=== PATIENT | female | born 1935 | race Caucasian/White ===

== ENCOUNTER 2019-11-17 22:23 | Emergency (ER) | payer OTHER, SELFPAY ==
[2019-11-17 22:38] VITALS: BP 190/96; PULSE 107; RESP 18; TEMP 36.7; O2SAT 98
[2019-11-17 23:50] VITALS: PULSE 87; RESP 18; TEMP 36.6; O2SAT 100
--- NOTE | 2019-11-18 00:08 | ED.SKABFB ---
HPI - Skin/Abscess/Foreign Bdy General Chief complaint: Skin/Abscess/Foreign Body Stated complaint: poision lambert Time Seen by Provider: 11/17/19 23:57 History of Present Illness HPI narrative: Itchy rash on the face and neck for the past few days. Started after working outside. She has been taking benadryl and putting a few different kinds of topical treatments on it without resolution. No wounds, pain, fever. Related Data Allergies Allergy/AdvReac Type Severity Reaction Status Date / Time No Known Allergies Allergy Verified 11/18/19 00:37 Review of Systems Review of Systems: All systems reviewed & are unremarkable except as noted in HPI and below Constitutional: Constitutional: Denies chills and Denies fever(s) Cardiovascular: Cardiovascular: Denies chest pain Respiratory: Respiratory: Denies dyspnea Gastrointestinal: Gastrointestinal: Denies nausea and Denies vomiting Integumentary/Breasts: Skin/Breast: Reports rash PMFSH Social History Social History (Updated 11/18/19 @ 04:59 by Anam Rivera MD) Gender identity (if verbalized by the patient): Female Exam Const: General: healthy appearing, no acute distress and alert Nutritional Appearance: well nourished Orientation/consciousness: patient oriented x3 HENMT: Other: Mildly erythematous papular rash to the cheeks and chin Eyes: Conjunctivae: conjunctivae normal Pupils: Equal, round and reactive pupils present EOM: EOMs intact bilaterally Resp: Effort & Inspection: normal respiratory effort Auscultation: clear to auscultation bilaterally Cardio: Rate: regular rate Rhythm: regular rhythm Skin: Other: See HEENT Neuro: General: patient oriented x3, moves all extremities, no focal motor deficits and CN's II-XI intact bilaterally Speech: normal speech Gait exam (Neuro): Normal gait present Extrem: General: normal to inspection Course Vital Signs Vital signs: Vital Signs Temperature 36.7 C 11/17/19 22:38 Pulse Rate 107 H 11/17/19 22:38 Respiratory Rate 18 11/17/19 22:38 Blood Pressure 190/96 H 11/17/19 22:38 Pulse Oximetry 98 11/17/19 22:38 Temperature 36.6 C 11/18/19 00:51 Pulse Rate 79 11/18/19 00:51 Respiratory Rate 16 11/18/19 00:51 Blood Pressure 180/94 H 11/18/19 00:51 Pulse Oximetry 100 11/18/19 00:51 Discharge Plan Discharge Clinical Impression: Contact dermatitis Qualifiers: Contact dermatitis type: allergic Contact dermatitis trigger: non-food plants Qualified Code(s): L23.7 - Allergic contact dermatitis due to plants, except food Patient Disposition: Home, Self-Care Condition: Stable Instructions: Contact Dermatitis (ED) Prescriptions: New prednisone 10 mg Tablet See Taper mg PO DAILY 15 Days Qty: 45 RF: 0 Follow-up/Referrals: PHYSICIAN NOT ON STAFF,NONSTAFF [Primary Care Provider] -
[2019-11-18] MEDS: predniSONE 20 MG TABLET 40 MG PO (00:41)
[2019-11-18 00:51] VITALS: BP 180/94; PULSE 79; RESP 16; TEMP 36.6; O2SAT 100
== END 2019-11-18 00:52 | disposition home or self-care (01) ==
PROVIDERS: Emergency Provider Emergency Medicine
DX: L23.7 Allergic contact dermatitis due to plants, except food (principal)
CPT/HCPCS: 99283; J7512

== ENCOUNTER 2022-08-29 22:10 | Emergency (ER) | payer OTHER, SELFPAY ==
[2022-08-29 22:13] VITALS: BP 156/103; PULSE 88; RESP 18; TEMP 36.3; O2SAT 100
--- NOTE | 2022-08-29 23:51 | ED.GENADULT ---
HPI - General Adult General Chief complaint: Extremity Problem,Nontraumatic Stated complaint: right domingo bump/bruise Time Seen by Provider: 08/29/22 23:39 History of Present Illness HPI narrative: This is an 87-year-old female with a history of AFib on Eliquis presenting with a lump on her domingo. Patient was out gardening throughout most the day. When she came back in she noticed a lump on her domingo. She is worried might be a blood clot. No other complaints or injuries. Related Data Allergies Allergy/AdvReac Type Severity Reaction Status Date / Time No Known Allergies Allergy Verified 08/29/22 22:46 [facility] Past Medical History Medical History (Updated 08/29/22 @ 23:54 by Blake Gillette MD) Atrial fibrillation Hypertension Social History Social History (Updated 11/18/19 @ 04:59 by Anam Rivera MD) Gender identity (if verbalized by the patient): Female Exam Narrative: APPEARANCE: No apparent distress. Head: atraumatic. EYES: EOMI, NOSE: Atraumatic NECK: Trachea midline RESPIRATORY: No increased rate of breathing CARDIOVASCULAR: RRR, ABDOMINAL: Non-distended MUSCULOSKELETAl: Patient has a small bruise with swelling over the anterior aspect of her right domingo. NEURO: Alert. Moving 4/4 extremities SKIN:: Warm, dry. Normal color PSYCHIATRIC: Normal affect Course Vital Signs Vital signs: Vital Signs Temperature 97.3 F L 08/29/22 22:13 Pulse Rate 88 08/29/22 22:13 Respiratory Rate 18 08/29/22 22:13 Blood Pressure 156/103 H 08/29/22 22:13 Pulse Oximetry 100 08/29/22 22:13 Oxygen Delivery Room Air 08/29/22 22:13 Temperature 97.3 F L 08/29/22 22:13 Pulse Rate 88 08/29/22 22:13 Respiratory Rate 18 08/29/22 22:13 Blood Pressure 156/103 H 08/29/22 22:13 Pulse Oximetry 100 08/29/22 22:13 Oxygen Delivery Room Air 08/29/22 22:13 Medical Decision Making [facility] Narrative Medical decision making narrative: -Presentation: 87-year-old female presenting with a lump on her domingo. -DDX includes but is not limited to: Bruise, hematoma -Co-morbidities complicating care: AFib on Eliquis, hypertension -Social determinants of health: retired, lives alone, likes to garden -External Chart Review: none -Hx from independent Sources: none -Independent interpretation of studies: none -Discussion of Management/Consultants: none -Dx tests considered but not ordered: none - Procedures: none -Interventions: none -Shared decision making / Disposition: patient has a small hematoma on her domingo, likely from minor trauma as she is on Xarelto. Discharged with primary care follow-up. -RX Vital Signs Vital Signs: Vital Signs Temperature 97.3 F L 08/29/22 22:13 Pulse Rate 88 08/29/22 22:13 Respiratory Rate 18 08/29/22 22:13 Blood Pressure 156/103 H 08/29/22 22:13 Pulse Oximetry 100 08/29/22 22:13 Oxygen Delivery Room Air 08/29/22 22:13 Temperature 97.3 F L 08/29/22 22:13 Pulse Rate 88 08/29/22 22:13 Respiratory Rate 18 08/29/22 22:13 Blood Pressure 156/103 H 08/29/22 22:13 Pulse Oximetry 100 08/29/22 22:13 Oxygen Delivery Room Air 08/29/22 22:13 Discharge Plan Discharge Clinical Impression: Hematoma Patient Disposition: Home, Self-Care Condition: Stable Instructions: Antibiotic Form, Hematoma (ED) Additional Instructions: Please follow-up with your primary care physician. Return if your swelling gets worse or you would like re-evaluation. Prescriptions: No Action prednisone 10 mg Tablet See Taper PO DAILY 15 Days Qty: 45 0RF Taper: Prednisone Taper from 50 mg;15 days 50 mg DAILY for 3 Days and 0 Hour 40 mg DAILY for 3 Days and 0 Hour 30 mg DAILY for 3 Days and 0 Hour 20 mg DAILY for 3 Days and 0 Hour 10 mg DAILY for 3 Days and 0 Hour Follow-up/Referrals: PHYSICIAN NOT ON STAFF,NONSTAFF [Primary Care Provider] -
== END 2022-08-29 23:59 | disposition home or self-care (01) ==
PROVIDERS: Emergency Provider Emergency Medicine
DX: S80.11XA Contusion of right lower leg, initial encounter (principal); I48.91 Unspecified atrial fibrillation; Z79.01 Long term (current) use of anticoagulants; I10 Essential (primary) hypertension; X58.XXXA Exposure to other specified factors, initial encounter
CPT/HCPCS: 99282

== ENCOUNTER 2023-10-28 08:43 | Inpatient (IN) | payer OTHER, SELFPAY ==
[2023-10-28] VITALS (25 sets, daily range): BP systolic 65–189; BP diastolic 40–98; PULSE 46–97; RESP 15–22; TEMP 36.5–36.8; O2SAT 98–100; BMI 20.6
--- NOTE | ~2023-10-28 | XR_ITS ---
EXAMINATION: XR shoulder LT min 2V, XR clavicle LT DATE: 10/28/2023 09:18 INDICATION: Left shoulder pain and deformity post fall TECHNIQUE: 1. AP internally and externally rotated and transscapular Y views of the left shoulder were obtained. 2. AP and angled AP views of the left clavicle were obtained. COMPARISON: None FINDINGS: There is an acute comminuted fracture of the left femoral head and neck. Including a few minimally di splaced fracture planes involving the greater tuberosity. There is 1.5 cm anterior and proximal displ acement of the fracture across the surgical neck consistent with a 2 part fracture. Mild acromioclavi cular osteoarthritis. There is suggestion of slight widening of the glenohumeral joint space consiste nt with the presence of a posttraumatic joint effusion. No other fractures identified. Visualized por tion of the lungs are clear. Heart size is normal. IMPRESSION: Comminuted two-part fracture the proximal left humerus. Reviewed, dictated and finalized at location B. IMPRESSION: Comminuted two-part fracture the proximal left humerus.
--- NOTE | ~2023-10-28 | CT_ITS ---
EXAMINATION: CT brain wo con DATE: 10/28/2023 12:24 INDICATION: Head injury. Fall. TECHNIQUE: Computed tomography (CT) of the head was performed without intravenous contrast. The mA wa s adjusted according to patient size. Iterative reconstruction technique was employed. The dose-lengt h product was 983.67 mGy-cm. COMPARISON: None FINDINGS: There are scattered areas of low attenuation in the cerebral white matter, which is within normal limits for the patient's age. There is no intracranial hemorrhage, acute infarction, or abnorm al intracranial mass lesion. The ventricles are normal in size. There is mild mucosal thickening in t he ethmoid sinuses. There are likely changes of ocular lens replacement surgeries. The mastoid air ce lls are normal. IMPRESSION: 1. Normal aging brain. Reviewed, dictated and finalized at location A. IMPRESSION: 1. Normal aging brain.
--- NOTE | ~2023-10-28 | CT_ITS ---
EXAMINATION: CTA chest abdomen pelvis DATE: 10/28/2023 12:27 INDICATION: Bradycardia. Fall. TECHNIQUE: Computed tomographic angiography (CTA) of the chest, abdomen, and pelvis was performed wit h 100 mL Omnipaque-350 intravenous contrast. Automated exposure control and iterative reconstruction technique were employed. The dose-length product was 968.35 mGy-cm. Maximum intensity projection 3D-r econstructions of the aorta and other arteries were constructed by the technologist on a separate wor kstation. COMPARISON: None. FINDINGS: CHEST CTA: There is mild emphysema. The lungs demonstrate mild scarring and atelectasis. There are trace pleural effusions. There is left atrial enlargement of the heart. There are coronary artery calcifications. No pericardial effusion. Calcified left hilar lymph nodes are consistent with old granulomatous disea se. Aortic atherosclerosis is noted. No aneurysm or dissection. There is severe thoracic spondylosis. There is a comminuted fracture of proximal left humerus. ABDOMEN AND PELVIS CTA: There are cysts in the liver measuring up to 8 mm. The gallbladder, spleen, pancreas, and adrenal gla nds are normal. There is cortical thinning of the kidneys. There is a 6 mm cyst in left kidney. The b ladder is distended. There is a 2.6 cm cyst in left ovary, likely benign. There are no dilated loops of bowel. The appendix is normal. There are no pathologically enlarged lymph nodes. There is no free intraperitoneal fluid. There is calcified atherosclerosis of the aorta and many of the other arteries . 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 There ar e 2 right renal arteries with moderate to severe stenosis. There is moderate stenosis of left renal a rtery. There is no significant stenosis of inferior mesenteric artery. There is severe lumbar spondyl osis. IMPRESSION: 1. Aortic atherosclerosis. No aneurysm or dissection. 2. Comminuted fracture of proximal left humerus. Reviewed, dictated and finalized at location A.
[2023-10-28] MEDS: MORPHINE SULFATE (*CRX) 2 MG/ML INJ IV PUSH (09:48)
--- NOTE | 2023-10-28 09:59 | ED.FALL ---
HPI - Fall General Chief Complaint: Fall Stated Complaint: fall, shoulder deformity Time Seen by Provider: 10/28/23 09:00 Source: patient Mode of arrival: EMS Limitations: no limitations History of Present Illness HPI Narrative: Patient is an 88-year-old female who presents to the ER after falling out on her back deck. She reports she tripped over her cat and hit her shoulder on the railing. Patient denies pain at rest but endorses pain with any type of movement. She denies any chest pain, shortness of breath, or one-sided weakness/tingling. Related Data Allergies Allergy/AdvReac Type Severity Reaction Status Date / Time No Known Allergies Allergy Verified 10/28/23 09:47 Review of Systems Review of Systems: All systems reviewed & are unremarkable except as noted in HPI and below PMFSH Past Medical History Medical History Atrial fibrillation Hypertension Social History Social History Gender identity (if verbalized by the patient): Female Exam Narrative: GENERAL: Well appearing, well-nourished, non-toxic, in no acute distress at baseline. NECK: Supple. No adenopathy, no masses. RESPIRATORY: Airway patent, respirations nonlabored. Clear to auscultation bilaterally, no rales, rhonchi, wheezing. CARDIOVASCULAR: Regular rate and rhythm without murmurs, rubs, or gallops. Peripheral pulses 2+ and equal bilaterally. ABDOMINAL: Soft, nontender, nondistended, no hepatosplenomegaly. Normoactive BS. MUSCULOSKELETAL: Moves all extremities. Pt is unable to tolerate any manipulation of her L shoulder and winces with abduction, adduction, internal and external rotation. L shoulder is extremely swollen and bruised. NEURO: A&O X3. Speech clear. Cranial nerves II-XII grossly intact. No ataxic movements. PSYCHIATRIC: Appropriate mood and affect. Normal interaction. Course Consultations Consultation #1: Orthopedics Date: 10/28/23 Time: 10:00 Vital Signs Vital signs: Vital Signs Pulse Rate 71 10/28/23 08:50 Respiratory Rate 18 10/28/23 08:50 Blood Pressure 187/88 H 10/28/23 08:50 Pulse Oximetry 100 10/28/23 08:50 Oxygen Delivery Room Air 10/28/23 08:50 Pulse Rate 71 10/28/23 09:46 Respiratory Rate 18 10/28/23 09:46 Blood Pressure 189/95 H 10/28/23 09:46 Pulse Oximetry 100 10/28/23 09:46 Oxygen Delivery Room Air 10/28/23 08:50 MDM - Fall MDM Narrative Medical decision making narrative: Patient is an 88-year-old female who presents to the ER after falling out on her back deck. She reports she tripped over her cat and hit her shoulder on the railing. Patient denies pain at rest but endorses pain with any type of movement. She denies any chest pain, shortness of breath, or one-sided weakness/tingling. Pt's x-rays shouler an acute comminuted fracture of the left humeral head and neck. Including a few minimally displaced fracture planes involving the greater tuberosity. There is 1.5 cm anterior and proximal displacement of the fracture across the surgical neck consistent with a 2 part fracture. Mild acromioclavicular osteoarthritis. There is suggestion of slight widening of the glenohumeral joint space consistent with the presence of a posttraumatic joint effusion. No other fractures identified. Visualized portion of the lungs are clear. Heart size is normal. Orthopedics consulted and they advised pt be placed in a sling and follow-up as an outpatient. Differential Diagnosis Differential diagnosis: Likely syncope, dislocation of shoulder region and compression fracture Imaging Data Attestation: I personally reviewed and interpreted this imaging study as follows: Radiologist's impression: Impressions Clavicle X-Ray 10/28/23 09:20 IMPRESSION: Comminuted two-part fracture the proximal left humerus. Shoulder X-Ray 10/28/23 09:20 IMPRESS
[2023-10-28] MEDS: SODIUM CHLORIDE 0.9% IV 1,000 ML 999 ML (10:45)
--- NOTE | 2023-10-28 10:45 | PC.NURSE ---
UPON DISCHARGING PT AND PLACING SHOULDER IMMOBILIZER SHE BECAME DIAPHORETIC AND DIZZY WITH NAUSEA. PLACED BACK INTO BED NOTED TO BE BRADYCARDIC AND HYPOTENSIVE. DR CASTRO TO BEDSIDE TO [facility].
--- NOTE | 2023-10-28 10:50 | ECG_ITS ---
Test Date: 2023-10-28 10:50:54 Measurements Intervals [place] Rate: 49 P: 0 KS: 0 QRS: 18 QRSD: 83 T: 30 QT: 479 QTc: 435 Interpretive Statements ATRIAL FIBRILLATION WITH SLOW VENTRICULAR RESPONSE BORDERLINE R WAVE PROGRESSION, ANTERIOR LEADS NONSPECIFIC ST-T WAVE ABNORMALITY0 ANT/INF LEADS BASELINE ARTIFACT- I, II, V4-V6 ABNORMAL ECG No previous ECG available for comparison Electronically Signed On 10-28-2023 11:23:59 CDT by Bon Saleem D.O.
--- NOTE | 2023-10-28 10:53 | ED.FALL ---
HPI - Fall General Chief Complaint: Fall <Pearl Krause APRN - Last Filed: 10/28/23 11:00> Stated Complaint: fall, shoulder deformity <Pearl Krause APRN - Last Filed: 10/28/23 11:00> Time Seen by Provider: 10/28/23 09:00 <Pearl Krause APRN - Last Filed: 10/28/23 11:00> Source: patient <Pearl Krause APRN - Last Filed: 10/28/23 11:00> Mode of arrival: EMS <Pearl Krause APRN - Last Filed: 10/28/23 11:00> History of Present Illness HPI Narrative: Patient is an 88-year-old female who was ready to be discharged home from the ER when she went bradycardic and her blood pressure dropped into the 70s over 40s. <Pearl Krause APRN - Last Filed: 10/28/23 11:00> Related Data Home Medications: Home Medications Medication Instructions Recorded Confirmed amlodipine 2.5 mg tablet 2.5 mg PO DAILY 10/28/23 10/28/23 metoprolol succinate 25 mg 25 mg PO DAILY 10/28/23 10/28/23 tablet,extended release 24 hr rivaroxaban 20 mg tablet (Xarelto) 20 mg PO DAILY 10/28/23 10/28/23 <Pearl Krause APRN - Last Filed: 10/28/23 11:00> Allergies/Adverse Reactions: Allergies Allergy/AdvReac Type Severity Reaction Status Date / Time No Known Allergies Allergy Verified 10/28/23 09:47 <Pearl Krause APRN - Last Filed: 10/28/23 11:00> Review of Systems Review of Systems: All systems reviewed & are unremarkable except as noted in HPI and below <Pearl Krause APRN - Last Filed: 10/28/23 11:00> PMFSH Past Medical History Medical History: Medical History Atrial fibrillation Hypertension <Pearl Krause APRN - Last Filed: 10/28/23 11:00> Family History Family History: Family History Father Unknown family medical history Mother Unknown family medical history <Pearl Krause APRN - Last Filed: 10/28/23 11:00> Social History Social History: Social History Smoking status: Never smoker Alcohol intake: current Drinks per week: 1 Substance use: never Do You Feel Safe in your Home?: Yes Lack of Transportation: YES Lack of Food: Never True Current Housing: I Have Housing Concerned About Future Housing: No Difficulty Paying Gas/Electric Bills: No Difficulty Paying for Meds: No Currently Unemployed: No Education: Bachelor's Degree Difficulty w/ Childcare or Family Care: No Gender identity (if verbalized by the patient): Female Spiritual care concerns: No <Pearl Krause APRN - Last Filed: 10/28/23 11:00> Course [employer] TECHNICIAN/PA Physician Supervision I was called to patient's bedside approximately 10:40 a.m. after she had a near syncopal event with associated bradycardia and hypotension. Patient at that time was being placed into a sling, went mostly unresponsive, was found to have a heart rate in the low 30s that was irregular, hypotension at 70 to 80s. A 2nd IV was placed, fluid bolus was given, placed on cardiac pads an EKG was obtained. Patient was becoming much more awake and arousable very quickly thereafter and her heart rate and blood pressure both improved without any significant intervention except for fluids. EKG was interpreted by myself as atrial fibrillation with slow ventricular response. She has a history of atrial fibrillation as reported to me. Patient was verbalizing stated that she had no acute pain but was feeling slightly lightheaded. This was resolving with time without any interventions like cardioactive medications such as atropine or cardiac pacing. Within 5 minutes patient had returned to a normal blood pressure heart rate. Likely patient had a vasovagal response to the pain from her fracture in the left upper extremity. Troponins and CTA is were ordered. Remainder of dictation by MLP. Plan to admit
[2023-10-28 10:55] LABS: Glucose Point of Care 136 mg/dl (65-105)
[2023-10-28 11:39] LABS: Basophils Percent Auto 0.1 % (0.2-1.2); Hematocrit 38.9 % (37.0-47.0); Hemoglobin 12.5 g/dL (12.0-15.0); Immature Granulocyte Absolute 0.03 K/mm3 (0.00-0.031); Immature Granulocyte Percent A 0.3 % (0-0.5); Lymphocytes Absolute Auto 0.68 K/mm3 (0.9-3.2); Lymphocytes Percent Auto 7.1 % (18.3-44.2); Mean Corpuscular HGB Conc 32.1 g/dl (32-36); Mean Corpuscular Hemoglobin 30.9 pg (26-34); Mean Corpuscular Volume 96.3 fl (80-100); Mean Platelet Volume 12.1 fl (7.4-10.4); Monocytes Absolute Auto 0.7 K/mm3 (0.1-0.6); Monocytes Percent Auto 6.8 % (2.6-8.5); Neutrophils Absolute Auto 8.3 K/mm3 (1.3-6.7); Neutrophils Percent Auto 85.7 % (45.5-73.1); Platelet Count Result 126 k/mm3 (150-375); Red Blood Count 4.04 M/mm3 (4.2-5.4); Red Cell Distribution Width 14.7 % (11.5-14.5); White Blood Count 9.6 K/mm3 (4.5-10.0)
[2023-10-28 11:58] LABS: Alanine Aminotransferase 19 U/L (6-35); Albumin Level 3.8 g/dL (3.5-5.1); Alkaline Phosphatase 62 U/L (38-126); Anion Gap 8 mmol/L (4-12); Aspartate Amino Transferase 28 U/L (14-36); Bilirubin,Total 0.6 mg/dL (0.2-1.3); Blood Urea Nitrogen 12 mg/dL (7-17); Calcium 8.3 mg/dL (8.4-10.2); Carbon Dioxide 24 mmol/L (22-30); Chloride 107 mmol/L (98-107); Estimated CRCL calculation 52 ml/min; Estimated Glomerular Filt Rate > 60; Glucose 128 mg/dL (65-110); Potassium 3.9 mmol/L (3.4-5.0); Sodium 139 mmol/L (137-145)
[2023-10-28 12:09] LABS: Troponin I < 0.012 ng/mL (0.000-0.034)
--- NOTE | 2023-10-28 13:43 | ADMGEN ---
This patient, Kristie Coates, was admitted to IMU Room 204-01. Patient/family oriented to hospital policies and general routines including ID bracelet, bed and alarms, visiting hours, pain management, procedures, bathroom and other care routines, personal items, smoking policy, room service/diet, and visiting hours. Information on how to activate the Rapid Response Team has been discussed. Patient/Family are encouraged to report perceived risks to care and to ask questions if they do not understand what they are told or what they should do.
--- NOTE | 2023-10-28 14:44 | PM.IMHP ---
H&P: HPI History of Present Illness Date/Time: 10/28/23 14:44 Chief Complaint: Fall, Near-Syncope Narrative: 88 y/o F presents here with fall and near syncope with PMH of atrial fibrillation and HTN. The patient initially presented here from home via EMS for further evaluation of fall. HPI obtained through chart review and patient report. She reports this morning at around 6:00 a.m. she was feeding her cats when one went under foot. This caused her to lose her balance and fall was from standing. She reports she fell onto her left hip/left shoulder and did not hit her head or lose consciousness. Reporting significant pain to her left shoulder with obvious deformity, edema, and ecchymosis visible bone arrival. Initial imaging showed a comminuted two part fracture of the proximal left humerus. Ortho was consulted, sling applied and instructed to follow up outpatient. Patient was not discharged, however prior to her leaving she had a near syncopal event. At around 10:40 a.m. while sling was being applied she became largely unresponsive with accompanying bradycardia and hypotension. Telemetry showed HR in the low 30s and BP was 70-80/palp. Patient became more responsive and vital signs normalized, started on IV fluids. EKG after event showed atrial fibrillation with slow ventricular response. Patient has history of atrial fibrillation on Metoprolol and Xarelto. Post event she reported lightheadedness prior to event. Denies nausea, vomiting, diaphoresis, palpitations, dizziness, or chest pain prior to event nor after event. Patient also reported that she had not eaten today (currently eating lunch) which may have also contributed to event. Patient does not follow with a home service advisor. Initial VS at presentation: HR 71, RR 18, 187/88, and 100% on RA. ED workup showed: No leukocytosis, no anemia, glucose 128, creatinine 0.7 and GFR >60, initial troponin negative. Clavicle/shoulder XR showed a comminuted 2 part fracture of the proximal left humerus. Head CT showed a normal aging brain. CTA of the chest/abdomen/pelvis showed aortic atherosclerosis, no aneurysm or dissection, and a comminuted fracture of the proximal left humerus. Review of Systems Review of Systems: All systems reviewed & are unremarkable except as noted in HPI and below [facility] Past Medical History Medical History Atrial fibrillation Hypertension Family History Family History Father Unknown family medical history Mother Unknown family medical history Social History Social History Smoking status: Never smoker Alcohol intake: current Drinks per week: 1 Substance use: never Do You Feel Safe in your Home?: Yes Lack of Transportation: YES Lack of Food: Never True Current Housing: I Have Housing Concerned About Future Housing: No Difficulty Paying Gas/Electric Bills: No Difficulty Paying for Meds: No Currently Unemployed: No Education: Bachelor's Degree Difficulty w/ Childcare or Family Care: No Gender identity (if verbalized by the patient): Female Spiritual care concerns: No Meds Home Medications and Allergies Home Medications Medication Instructions Recorded Confirmed Type amlodipine 2.5 mg tablet 2.5 mg PO DAILY 10/28/23 10/28/23 History metoprolol succinate 25 mg 25 mg PO DAILY 10/28/23 10/28/23 History tablet,extended release 24 hr rivaroxaban 20 mg tablet (Xarelto) 20 mg PO DAILY 10/28/23 10/28/23 History Allergies Allergy/AdvReac Type Severity Reaction Status Date / Time No Known Allergies Allergy Verified 10/28/23 09:47 Vital Signs Vital Signs - 24 hr 10/28/23 08:50 10/28/23 09:46 10/28/23 10:00 Pulse Rate 71 71 59 L Respiratory Rate 18 18 18 Blood Pressure 187/88 H 189/95 H 165/85 H Pulse Oximetry 100 100 98 Oxygen Deliv
[2023-10-28 15:22] LABS: NT Pro B Type Natriuretic Pept 1630 pg/mL (19.9-100)
[2023-10-28] MEDS: ACETAMINOPHEN 325 MG TABLET 650 MG PO (15:24)
[2023-10-28 15:27] LABS: Troponin I < 0.012 ng/mL (0.000-0.034)
[2023-10-28 18:30] LABS: Troponin I < 0.012 ng/mL (0.000-0.034)
[2023-10-28] MEDS: HYDROcodone/acetaminophen (*CRX) 5-325 MG TABLET 1 TAB PO (20:58)
[2023-10-29] VITALS (16 sets, daily range): BP systolic 143–176; BP diastolic 58–97; PULSE 64–93; RESP 14–20; TEMP 36.3–37.3; O2SAT 93–100
--- NOTE | 2023-10-29 | ECHO_ITS ---
Patient Info Name: Kristie Coates Age: 88 years : 1935 Gender: Female Ht: 68 in Wt: 136 lbs BSA: 1.72 m2 HR: 82 bpm BP: 162 / 97 mmHg Heart Rhythm: Indeterminant Technical Quality: Good Exam Date: 10/29/2023 11:08 AM Exam Location: Echo Lab Patient Status: Outpatient Admit Date: 10/28/2023 Staff Ordering Physician: Anca Sanchez APRN Warehouse Consultant: Kerri Soler RDCS Attending Provider: Kelvin Sutherland MD Referring Physician: Laura CAO; Exam Type: CA echo doppler color flow Study Info Indications - near-syncope Complete two-dimensional, color flow and Doppler transthoracic echocardiogram is performed. Summary 1. Complete two-dimensional, color flow and Doppler transthoracic echocardiogram is performed. 2. Left ventricular chamber dimension is normal. 3. Left ventricular systolic function is normal, estimated at 60-65%. 4. The left ventricular diastolic function is normal. 5. E/e' 9 is minimally elevated. 6. Left atrial chamber dimension is moderately enlarged. 7. Right atrial chamber dimension is moderately enlarged. 8. There is moderate aortic valve sclerosis. 9. There is mild to moderate aortic valve stenosis with a peak velocity of 184 cm/s, mean gradient of 9 mmHg, and aortic valve area of 1.5 cm2. 10. There is trace aortic valve regurgitation. 11. The mitral valve has mildly calcified annulus. 12. There is mild mitral valve regurgitation. 13. There is mild tricuspid valve regurgitation. 14. No pulmonary hypertension, estimated pulmonary arterial systolic pressure is 37 mmHg. Left Ventricle E/e' 9 is minimally elevated. Left ventricular chamber dimension is normal. Left ventricular systolic function is normal, estimated at 60-65%. The left ventricular diastolic function is normal. Right Ventricle Right ventricular systolic function is normal and with normal TAPSE 2.1 cm. Right ventricular chamber dimension is normal. Left Atria Left atrial chamber dimension is moderately enlarged. Right Atria Right atrial chamber dimension is moderately enlarged. Aortic Valve The aortic valve is probable trileaflet. There is moderate aortic valve sclerosis. There is mild to moderate aortic valve stenosis with a peak velocity of 184 cm/s, mean gradient of 9 mmHg, and aortic valve area of 1.5 cm2. There is trace aortic valve regurgitation. Pulmonic Valve There is no pulmonic regurgitation. Mitral Valve The mitral valve has mildly calcified annulus. There is no mitral valve stenosis. There is mild mitral valve regurgitation. Tricuspid Valve There is mild tricuspid valve regurgitation. No pulmonary hypertension, estimated pulmonary arterial systolic pressure is 37 mmHg. Pericardium/Pleural There is no pericardial effusion. Inferior Vena Cava Normal inferior vena cava with >50% collapse upon inspiration consistent with normal right atrial pressure, 5 mmHg. Aorta The aortic root size at the sinus of Valsalva is normal. Left Ventricular Outflow Tract Name Value Normal LVOT 2D LVOT Diameter 1.8 cm LVOT Doppler LVOT Peak Gradient 3 mmHg LVOT Mean Gradient 2 mmHg LVOT VTI 23 cm
[2023-10-29] MEDS: HYDROcodone/acetaminophen (*CRX) 5-325 MG TABLET 1 TAB PO ×3 (03:23→19:34)
[2023-10-29 05:05] LABS: Basophils Percent Auto 0.3 % (0.2-1.2); Eosinophils Percent Auto 0.4 % (0-4.4); Hematocrit 35.9 % (37.0-47.0); Hemoglobin 11.5 g/dL (12.0-15.0); Immature Granulocyte Absolute 0.02 K/mm3 (0.00-0.031); Immature Granulocyte Percent A 0.3 % (0-0.5); Lymphocytes Absolute Auto 1.76 K/mm3 (0.9-3.2); Lymphocytes Percent Auto 24.9 % (18.3-44.2); Mean Corpuscular Hemoglobin 30.4 pg (26-34); Mean Platelet Volume 12.5 fl (7.4-10.4); Monocytes Percent Auto 13.5 % (2.6-8.5); Neutrophils Absolute Auto 4.3 K/mm3 (1.3-6.7); Neutrophils Percent Auto 60.6 % (45.5-73.1); Platelet Count Result 146 k/mm3 (150-375); Red Blood Count 3.78 M/mm3 (4.2-5.4); Red Cell Distribution Width 14.7 % (11.5-14.5); White Blood Count 7.1 K/mm3 (4.5-10.0)
[2023-10-29 05:18] LABS: Anion Gap 6 mmol/L (4-12); Blood Urea Nitrogen 17 mg/dL (7-17); Calcium 8.5 mg/dL (8.4-10.2); Carbon Dioxide 27 mmol/L (22-30); Chloride 102 mmol/L (98-107); Estimated CRCL calculation 50 ml/min; Estimated Glomerular Filt Rate > 60; Glucose 109 mg/dL (65-110); Potassium 3.4 mmol/L (3.4-5.0); Sodium 135 mmol/L (137-145)
--- NOTE | 2023-10-29 09:09 | PM.CNOR ---
Assessment and Plan Assessment and plan (1) Fracture of humerus, proximal, left, closed: Qualifiers: Encounter type: initial encounter Fracture morphology: other fracture Fracture alignment: nondisplaced Qualified Code(s): S42.295A - Other nondisplaced fracture of upper end of left humerus, initial encounter for closed fracture Code(s): S42.202A - Unspecified fracture of upper end of left humerus, initial encounter for closed fracture Status: Acute Assessment and Plan: Radiographs in the ED reveal a comminuted two-part fracture the proximal left humerus. The fracture type and injury as well as radiographs discussed with the patient. No family present and unable to get ahold of family at this time. Operative and nonoperative treatment options reviewed. Recommended nonoperative treatment at this time. Risk of nonunion, malunion or late displacement discussed. Stiffness, pain and possible dysfunction of the joint discussed. Fracture precautions and activity restrictions reviewed. Would like to further discuss with family/brother. Current information in the chart is incorrect- phone disconnected. Nursing notified. Patient may need rehab placement vs. [facility] pending ability to get around independently with shoulder fracture/shoulder immobilizer. PT/OT. NWB LUE. Pain control. Ice. Care coordination consult requested. Will plan for repeat radiographs in the outpatient orthopedic clinic in 5-6 weeks. Gentle pendulum exercises, okay to remove shoulder immobilizer for hygiene purposes. Monitor skin. Nystatin powder in the underarm space if needed. (2) Altered mental status: Code(s): R41.82 - Altered mental status, unspecified Status: Acute Assessment and Plan: Attempted to contact patient's brother who is her person to notify to discuss her typical baseline mentation. Phone number in the chart is incorrect. No other contacts listed. Requested RN attempt to obtain new information to discuss plan of care with the family. (3) Near syncope: Code(s): R55 - Syncope and collapse Status: Acute Plan Reviewed history, exam, radiographs and current labs with attending MD and covering surgeon, Dr. Pond, who agrees with current plan as indicated above. No further recommendations from Dr. Pond at this time. History of Present Illness HPI Consult date: 10/29/23 Chief complaint: L Humeral Fx/Syncopal episode w poss Cardiac Invol Narrative: 88 year old female presented to the ED yesterday from home s/p fall on her back deck. She reports she tripped over her cat and hit her shoulder on the railing. At the time in the ED, patient denied any other pain/symptoms. Radiographs of the left shoulder reveal comminuted two-part fracture the proximal left humerus. Dr. Pond was director utilization management and consulted from the ED. Recommended patient be put in a shoulder immobilizer and be evaluated as an outpatient. Upon d/c and placement of the shoulder immobilizer, patient had a syncopal event requiring a rapid response and further work up. Per the medical record, her vitals quickly returned to baseline. She was admitted for observation in the IMU. Orthopedic consult requested while patient is inpatient. Upon exam today, patient is confused. She states she has been in the hospital for 5 days. Poor historian today in regards to nature of injury. No family at bedside presently. Review of Systems Review of Systems: All systems reviewed & are unremarkable except as noted in HPI and below ROS unobtainable: Yes unobtainable due to mental status (confusion today ) [facility] Past Medical History Medical History Atrial fibrillation Hypertension Family History Family History Father Unknown family medical history Mother Unknown family medical history Social History Social History (Reviewed 10/29/23 @ 10
[2023-10-29] MEDS: METOPROLOL SUCCINATE EXT REL 25 MG TABCR PO (09:59)
[2023-10-29] MEDS: amLODIPine BESYLATE 2.5 MG TABLET PO (09:59)
[2023-10-29] MEDS: RIVAROXABAN 20 MG TABLET PO (09:59)
[2023-10-29] MEDS: ONDANSETRON INJ 4 MG/2 ML VIAL IV PUSH (10:48)
--- NOTE | 2023-10-29 13:07 | PM.CNCAR ---
Assessment and Plan Assessment and plan (1) Atrial fibrillation: Qualifiers: Atrial fibrillation type: unspecified Qualified Code(s): I48.91 - Unspecified atrial fibrillation Code(s): I48.91 - Unspecified atrial fibrillation Status: Chronic Assessment and Plan: Chronic atrial fibrillation managed with metoprolol and Xarelto. On telemetry review she generally has heart rate within the normal range but did have some transient bradycardia in the emergency department associated with hypotension. As she has not had any further significant bradycardia or hypotension I suspect this may have been a vasovagal/pain response. For now I am not recommending any additional cardiac workup. An echo has been ordered by the hospitalist and will be reviewed. Continue to monitor on telemetry for now. (2) Near syncope: Code(s): R55 - Syncope and collapse Status: Acute Assessment and Plan: As above, likely vasovagal (3) Hypertension: Qualifiers: Hypertension type: primary hypertension Qualified Code(s): I10 - Essential (primary) hypertension Code(s): I10 - Essential (primary) hypertension Status: Chronic Assessment and Plan: Will advance her amlodipine to 5mg daily History of Present Illness History of Present Illness Consult date/time: 10/29/23 13:07 Requesting physician: Kelvin Sutherland MD Consult reason: atrial fibrillation Reason For Visit: L Humeral Fx/Syncopal episode w poss Cardiac Invol Narrative: Kristie Coates is an 88 year old female with atrial fibrillation. She is hospitalized after having a mechanical fall at home. Cardiology is consulted because of an episode in the ER of dizziness, hypotension, and diaphoresis. Patient does recall feeling dizzy at some point during her stay in the ED but does not recall this event specifically. She reports still feeling light headed. Review of her vital sign documentation shows a BP of 65/40 mmHg which improved with IV fluids. Telemetry generally shows heart rate in the normal range in atrial fibrillation but in the ED she did have some bradycardia with rates in the high 30's - 40's. She has a history of syncope but reports it has been many years. She denies loss of consciousness at the time of her fall. She denies palpitations, shortness of breath, chest pain. She has had the diagnosis of atrial fibrillation for many years and this is managed by her primary doctor, she does not follow with a mechanical specialist. Review of Systems Review of Systems: All systems reviewed & are unremarkable except as noted in HPI and below PMFSH Past Medical History Medical History Atrial fibrillation Hypertension Family History Family History Father Unknown family medical history Mother Unknown family medical history Social History Social History Smoking status: Never smoker Alcohol intake: current Drinks per week: 1 Substance use: never Do You Feel Safe in your Home?: Yes Lack of Transportation: YES Lack of Food: Never True Current Housing: I Have Housing Concerned About Future Housing: No Difficulty Paying Gas/Electric Bills: No Difficulty Paying for Meds: No Currently Unemployed: No Education: Bachelor's Degree Difficulty w/ Childcare or Family Care: No Gender identity (if verbalized by the patient): Female Spiritual care concerns: No Meds Home Medications and Allergies Home Medications Medication Instructions Recorded Confirmed Type amlodipine 2.5 mg tablet 2.5 mg PO DAILY 10/28/23 10/28/23 History metoprolol succinate 25 mg 25 mg PO DAILY 10/28/23 10/28/23 History tablet,extended release 24 hr rivaroxaban 20 mg tablet (Xarelto) 20 mg PO DAILY 10/28/23 10/28/23 History Allergies Allergy/AdvReac Typ
--- NOTE | 2023-10-29 18:22 | PM.IMPN ---
Progress Note: A&P Assessment and Plan (1) Fracture of humerus, proximal, left, closed: Qualifiers: Encounter type: initial encounter Fracture morphology: other fracture Fracture alignment: nondisplaced Qualified Code(s): S42.295A - Other nondisplaced fracture of upper end of left humerus, initial encounter for closed fracture Code(s): S42.202A - Unspecified fracture of upper end of left humerus, initial encounter for closed fracture Status: Acute Assessment and Plan: - trauma workup: Clavicle XR, head CT, and chest/abdomen/pelvis CTA negative for acute findings. Shoulder XR showed a comminuted 2 part fracture of the proximal left humerus. - fall precautions - shoulder immobilizer applied - analgesics p.r.n. Outpatient follow up with ortho (2) Near syncope: Code(s): R55 - Syncope and collapse Status: Acute Assessment and Plan: - EKG, initial: AFib with slow ventricular response, rate 49, borderline R-wave progression anterior leads, nonspecific ST-T-wave abnormality anterior/inferior leads, baseline artifact. No previous EKG available for comparison - CTA chest/abdomen/pelvis: 1. Aortic atherosclerosis. No aneurysm or dissection. 2. Comminuted fracture of proximal left humerus. - Troponin: <0.012, 3 and 6 hour ordered - add TSH and BNP - suspected to be vasovagal/multifactorial related to pain during sling application, lack of breakfast, and pain medication. - telemetry monitoring - orthostatic vital signs and ECHO pending cardiology eval noted (3) Atrial fibrillation: Qualifiers: Atrial fibrillation type: unspecified Qualified Code(s): I48.91 - Unspecified atrial fibrillation Code(s): I48.91 - Unspecified atrial fibrillation Status: Chronic Assessment and Plan: - home medications: continue metoprolol and Xarelto - telemetry monitoring (4) Hypertension: Qualifiers: Hypertension type: primary hypertension Qualified Code(s): I10 - Essential (primary) hypertension Code(s): I10 - Essential (primary) hypertension Status: Chronic Assessment and Plan: - chronic, currently 186/81 - home medications: continue Amlodipine - monitor Plan Diet: Heart healthy GI Prophylaxis: Not currently indicated DVT Prophylaxis: SCDs Lines: Peripheral Code Status: Full code Subjective Date/time seen: 10/29/23 18:22 Interval history: patient comfortable at bedside, however she is unable to recall events of her fall, only stated she remembered being dizzy Review of Systems Review of Systems: All systems reviewed & are unremarkable except as noted in HPI and below Exam Narrative: General: alert and comfortable Eyes: EOMI, PERRLA ENNT External ears normal, Neck is supple, no masses, Respiratory systems: Clear to auscultation Cardiovascular S1, S2, normal rhythm, no murmur, rub, or gallop; no thrill or palpable murmurs on palpation. Gastrointestinal: soft, non-tender, and non-distended abdomen with no masses; BS present Skin: no rash, lesions, ulcerations, subcutaneous nodules or induration Musculoskeletal: eccymosis of the left shoulder Neurologic: Alert and oriented x3, non focal Mental Status Exam: normal affect Objective Data Vital Signs Vital Signs: Vital Signs - 24 hr 10/28/23 20:20 10/28/23 20:00 10/28/23 20:00 Temperature 97.7 F Pulse Rate 93 97 97 Respiratory Rate 16 16 Blood Pressure 149/72 H Pulse Oximetry 100 100 Oxygen Delivery Room Air 10/28/23 22:00 10/28/23 23:00 10/28/23 23:00 Temperature Pulse Rate 88 78 78 Respiratory Rate 16 Blood Pressure Pulse Oximetry 100 Oxygen Delivery Room Air 10/29/23 01:06 10/29/23 02:00 10/29/23 03:29 Temperature 97.7 F Pulse Rate 74 76 78 Respiratory Rate 16 Blood Pressure 146/58 H Pulse Oximetry 93 Oxygen Delivery 10/29/23 03:29 10/29/23 03:31 10/29/23 05:38
[2023-10-29] MEDS: PROCHLORPERAZINE EDISYLATE 10 MG/2 ML VIAL IV PUSH (19:34)
[2023-10-30] VITALS (18 sets, daily range): BP systolic 140–156; BP diastolic 70–96; PULSE 77–90; RESP 16–20; TEMP 36.4–36.8; O2SAT 97–99
[2023-10-30 04:31] LABS: Basophils Percent Auto 0.2 % (0.2-1.2); Eosinophils Percent Auto 0.1 % (0-4.4); Hematocrit 34.8 % (37.0-47.0); Hemoglobin 11.5 g/dL (12.0-15.0); Immature Granulocyte Absolute 0.02 K/mm3 (0.00-0.031); Immature Granulocyte Percent A 0.2 % (0-0.5); Lymphocytes Absolute Auto 0.93 K/mm3 (0.9-3.2); Lymphocytes Percent Auto 10.4 % (18.3-44.2); Mean Corpuscular Volume 93.8 fl (80-100); Mean Platelet Volume 12.4 fl (7.4-10.4); Monocytes Absolute Auto 1.1 K/mm3 (0.1-0.6); Monocytes Percent Auto 11.7 % (2.6-8.5); Neutrophils Absolute Auto 6.9 K/mm3 (1.3-6.7); Neutrophils Percent Auto 77.4 % (45.5-73.1); Platelet Count Result 138 k/mm3 (150-375); Red Blood Count 3.71 M/mm3 (4.2-5.4); Red Cell Distribution Width 14.4 % (11.5-14.5)
[2023-10-30 04:51] LABS: Alanine Aminotransferase 17 U/L (6-35); Albumin Level 3.6 g/dL (3.5-5.1); Alkaline Phosphatase 55 U/L (38-126); Anion Gap 8 mmol/L (4-12); Aspartate Amino Transferase 29 U/L (14-36); Bilirubin,Total 0.8 mg/dL (0.2-1.3); Blood Urea Nitrogen 14 mg/dL (7-17); Calcium 8.3 mg/dL (8.4-10.2); Carbon Dioxide 27 mmol/L (22-30); Chloride 96 mmol/L (98-107); Estimated CRCL calculation 50 ml/min; Estimated Glomerular Filt Rate > 60; Glucose 116 mg/dL (65-110); Potassium 3.2 mmol/L (3.4-5.0); Sodium 131 mmol/L (137-145)
[2023-10-30] MEDS: PROCHLORPERAZINE EDISYLATE 10 MG/2 ML VIAL IV PUSH (06:22)
--- NOTE | 2023-10-30 08:23 | PM.PNCARD ---
Progress Note: A&P Assessment and Plan (1) Atrial fibrillation: Qualifiers: Atrial fibrillation type: unspecified Qualified Code(s): I48.91 - Unspecified atrial fibrillation Code(s): I48.91 - Unspecified atrial fibrillation Status: Chronic Plan 88-year-old lady with chronic asymptomatic atrial fibrillation with good heart rate control. This has nothing to do with a mechanical fall, tripping over her cat that is the reason for her hospitalization. At this point cardiology will sign off is this does not appear to be primarily a cardiac event. Her PCP has been following her atrial fib prior to this admission and since that is a chronic issue it would seem that follow-up in our office is probably of no great benefit. Please call me if you have cardiovascular questions while she is still in the hospital otherwise I will sign off at this time Henry Colvin MD [facility] Subjective Date/time seen: date of service:10/30/23 08:23 Interval history: Follow-up visit in this 88-year-old lady with: Chronic atrial fibrillation being managed with low dose of metoprolol for rate control. She was admitted to the hospital with a mechanical fall, tripping over her cat and sustaining a fracture of her humerus. Non operative management of this has been recommended by orthopedic consult. Telemetry demonstrates AFib with normal ventricular response. Exam Const: General: comfortable and no acute distress Other: Elderly white female eating her breakfast no cardiovascular complaints HENMT: Mouth: Yes moist mucous membranes Eyes: Sclera: sclerae normal Neck: Neck: supple and no JVD Resp: Effort & Inspection: normal respiratory effort Auscultation: clear to auscultation bilaterally Cardio: Rate: regular rate Rhythm: abnormal rhythm irregularly irregular GI: GI Palp: Yes Soft to palpation Auscultation: normal bowel sounds Skin: General skin exam: normal color Neuro: Other: alert and oriented x3 Extrem: Other: good perfusion, no edema Objective Data Vital Signs Vital Signs: Vital Signs - 24 hr 10/29/23 09:59 10/29/23 12:08 10/29/23 12:00 Temperature 36.3 C L Pulse Rate 84 83 Respiratory Rate 20 Blood Pressure 176/83 H Pulse Oximetry 100 Oxygen Delivery Room Air 10/29/23 10:00 10/29/23 12:00 10/29/23 12:00 Temperature Pulse Rate 76 86 Respiratory Rate Blood Pressure Pulse Oximetry Oxygen Delivery Room Air 10/29/23 14:00 10/29/23 16:00 10/29/23 16:00 Temperature 36.3 C L Pulse Rate 83 72 64 Respiratory Rate 18 Blood Pressure 146/75 H Pulse Oximetry 100 Oxygen Delivery 10/29/23 18:00 10/29/23 16:00 10/29/23 19:30 Temperature 36.9 C Pulse Rate 82 72 Respiratory Rate 18 Blood Pressure 145/90 H Pulse Oximetry 100 Oxygen Delivery Room Air 10/29/23 20:00 10/29/23 20:00 10/29/23 22:00 Temperature Pulse Rate 78 85 Respiratory Rate Blood Pressure Pulse Oximetry 100 Oxygen Delivery Room Air 10/29/23 23:49 10/30/23 00:00 10/30/23 00:00 Temperature 37.3 C Pulse Rate 78 82 Respiratory Rate 14 Blood Pressure 143/83 H Pulse Oximetry 99 99 Oxygen Delivery 10/30/23 02:00 10/30/23 04:00 10/30/23 04:00 Temperature Pulse Rate 81 89 Respiratory Rate Blood Pressure Pulse Oximetry 98 Oxygen Delivery Room Air 10/30/23 04:00 10/30/23 06:00 Temperature 36.7 C Pulse Rate 88 77 Respiratory Rate 18 Blood Pressure 140/70 Pulse Oximetry 98 Oxygen Delivery Intake/Output Intake/Output: Intake & Output 10/27/23 10/28/23 10/29/23 10/30/23 23:59 23:59 23:59 23:59 Intake Total 1240 1210 550 Output Total 750 950 Balance 490 260 550 Meds/Results Medications: Active Medications Generic Name Dose Route Start Last Admin Trade Name Ariella PRN Reason Stop Dose Admin Acetaminophen 650 mg 10/28/23 13:29 10/28/23 15:24 Acet
[2023-10-30] MEDS: RIVAROXABAN 20 MG TABLET PO (08:46)
[2023-10-30] MEDS: amLODIPine BESYLATE 5 MG TABLET PO (08:46)
[2023-10-30] MEDS: METOPROLOL SUCCINATE EXT REL 25 MG TABCR PO (08:46)
--- NOTE | 2023-10-30 12:56 | PM.IMPN ---
Progress Note: A&P Assessment and Plan (1) Fracture of humerus, proximal, left, closed: Qualifiers: Encounter type: initial encounter Fracture morphology: other fracture Fracture alignment: nondisplaced Qualified Code(s): S42.295A - Other nondisplaced fracture of upper end of left humerus, initial encounter for closed fracture Code(s): S42.202A - Unspecified fracture of upper end of left humerus, initial encounter for closed fracture Status: Acute Assessment and Plan: - trauma workup: Clavicle XR, head CT, and chest/abdomen/pelvis CTA negative for acute findings. Shoulder XR showed a comminuted 2 part fracture of the proximal left humerus. - fall precautions - shoulder immobilizer applied - analgesics p.r.n. Outpatient follow up with ortho (2) Near syncope: Code(s): R55 - Syncope and collapse Status: Acute Assessment and Plan: - EKG, initial: AFib with slow ventricular response, rate 49, borderline R-wave progression anterior leads, nonspecific ST-T-wave abnormality anterior/inferior leads, baseline artifact. No previous EKG available for comparison - CTA chest/abdomen/pelvis: 1. Aortic atherosclerosis. No aneurysm or dissection. 2. Comminuted fracture of proximal left humerus. - Troponin: <0.012, 3 and 6 hour ordered - TSH wnl - patient is orthostatic started on Fludrocortisone ECHO showed normal LV function cardiology evaluated deemed patient has vasovagal continue above car and monitor (3) Atrial fibrillation: Qualifiers: Atrial fibrillation type: unspecified Qualified Code(s): I48.91 - Unspecified atrial fibrillation Code(s): I48.91 - Unspecified atrial fibrillation Status: Chronic Assessment and Plan: - home medications: continue metoprolol and Xarelto - telemetry monitoring (4) Hypertension: Qualifiers: Hypertension type: primary hypertension Qualified Code(s): I10 - Essential (primary) hypertension Code(s): I10 - Essential (primary) hypertension Status: Chronic Assessment and Plan: - chronic, currently 140/80 - home medications: continue Amlodipine - monitor Plan Diet: Heart healthy DVT Prophylaxis: On Xarelto Code Status: Full code Subjective Date/time seen: 10/30/23 12:56 Interval history: patient orthostatic this morning started on Fludrocortisone monitor Review of Systems Review of Systems: All systems reviewed & are unremarkable except as noted in HPI and below Exam Narrative: General: alert and comfortable Eyes: EOMI, PERRLA ENNT External ears normal, Neck is supple, no masses, Respiratory systems: Clear to auscultation Cardiovascular S1, S2, normal rhythm, no murmur, rub, or gallop; no thrill or palpable murmurs on palpation. Gastrointestinal: soft, non-tender, and non-distended abdomen with no masses; BS present Skin: no rash, lesions, ulcerations, subcutaneous nodules or induration Musculoskeletal: eccymosis of the left shoulder Neurologic: Alert and oriented x3, non focal Mental Status Exam: normal affect Const: General: comfortable and no acute distress Other: , female, nontoxic appearance HENMT: Face/Nose/Sinus: Normal nares present Mouth: Yes moist mucous membranes Eyes: General: appearance normal, both eyes and all related structures Sclera: sclerae normal Pupils: Equal, round and reactive pupils present EOM: EOMs intact bilaterally Resp: Effort & Inspection: normal respiratory effort Auscultation: clear to auscultation bilaterally Cardio: Rate: regular rate Rhythm: abnormal rhythm Other: no murmur or rub. GI: Other: Abdomen soft, nondistended, nontender. Skin: General skin exam: normal color and no rashes or lesions noted Other: Ecchymosis to left shoulder. Neuro: Cranial nerves: Yes Equal, round and reactive pupils present Speech: normal speech Motor exam (puneet
[2023-10-30] MEDS: FLUDROCORTISONE ACETATE 0.1 MG TABLET PO (14:34)
[2023-10-30] MEDS: HYDROcodone/acetaminophen (*CRX) 5-325 MG TABLET 1 TAB PO (23:40)
[2023-10-31] VITALS (21 sets, daily range): BP systolic 129–185; BP diastolic 70–92; PULSE 71–107; RESP 16–18; TEMP 36.2–36.8; O2SAT 95–98
[2023-10-31 04:36] LABS: Basophils Percent Auto 0.1 % (0.2-1.2); Eosinophils Percent Auto 0.2 % (0-4.4); Hematocrit 33.1 % (37.0-47.0); Immature Granulocyte Absolute 0.05 K/mm3 (0.00-0.031); Immature Granulocyte Percent A 0.6 % (0-0.5); Lymphocytes Absolute Auto 1.07 K/mm3 (0.9-3.2); Lymphocytes Percent Auto 13.3 % (18.3-44.2); Mean Corpuscular HGB Conc 33.2 g/dl (32-36); Mean Corpuscular Hemoglobin 30.7 pg (26-34); Mean Corpuscular Volume 92.5 fl (80-100); Mean Platelet Volume 12.4 fl (7.4-10.4); Monocytes Absolute Auto 1.1 K/mm3 (0.1-0.6); Monocytes Percent Auto 14.1 % (2.6-8.5); Neutrophils Absolute Auto 5.8 K/mm3 (1.3-6.7); Neutrophils Percent Auto 71.7 % (45.5-73.1); Platelet Count Result 138 k/mm3 (150-375); Red Blood Count 3.58 M/mm3 (4.2-5.4); Red Cell Distribution Width 13.9 % (11.5-14.5); White Blood Count 8.1 K/mm3 (4.5-10.0)
[2023-10-31 04:54] LABS: Alanine Aminotransferase 18 U/L (6-35); Albumin Level 3.4 g/dL (3.5-5.1); Alkaline Phosphatase 50 U/L (38-126); Anion Gap 4 mmol/L (4-12); Aspartate Amino Transferase 28 U/L (14-36); Bilirubin,Total 0.8 mg/dL (0.2-1.3); Blood Urea Nitrogen 13 mg/dL (7-17); Carbon Dioxide 30 mmol/L (22-30); Chloride 92 mmol/L (98-107); Estimated CRCL calculation 58 ml/min; Estimated Glomerular Filt Rate > 60; Glucose 102 mg/dL (65-110); Potassium 3.1 mmol/L (3.4-5.0); Sodium 126 mmol/L (137-145)
[2023-10-31] MEDS: METOPROLOL SUCCINATE EXT REL 25 MG TABCR PO (08:14)
[2023-10-31] MEDS: RIVAROXABAN 20 MG TABLET PO (08:14)
[2023-10-31] MEDS: FLUDROCORTISONE ACETATE 0.1 MG TABLET PO (08:14)
[2023-10-31] MEDS: amLODIPine BESYLATE 5 MG TABLET PO (08:15)
[2023-10-31] MEDS: SODIUM CHLORIDE 0.9% IV 500 ML IV CONT (11:15)
[2023-10-31 13:50] LABS: Sodium 126 mmol/L (137-145)
--- NOTE | 2023-10-31 16:42 | PM.IMPN ---
Progress Note: A&P Assessment and Plan (1) Fracture of humerus, proximal, left, closed: Qualifiers: Encounter type: initial encounter Fracture morphology: other fracture Fracture alignment: nondisplaced Qualified Code(s): S42.295A - Other nondisplaced fracture of upper end of left humerus, initial encounter for closed fracture Code(s): S42.202A - Unspecified fracture of upper end of left humerus, initial encounter for closed fracture Status: Acute Assessment and Plan: - trauma workup: Clavicle XR, head CT, and chest/abdomen/pelvis CTA negative for acute findings. Shoulder XR showed a comminuted 2 part fracture of the proximal left humerus. - fall precautions - shoulder immobilizer applied - analgesics p.r.n. Outpatient follow up with ortho (2) Near syncope: Code(s): R55 - Syncope and collapse Status: Acute Assessment and Plan: - EKG, initial: AFib with slow ventricular response, rate 49, borderline R-wave progression anterior leads, nonspecific ST-T-wave abnormality anterior/inferior leads, baseline artifact. No previous EKG available for comparison - CTA chest/abdomen/pelvis: 1. Aortic atherosclerosis. No aneurysm or dissection. 2. Comminuted fracture of proximal left humerus. - Troponin: <0.012, 3 and 6 hour ordered - TSH wnl - orthostatic viral signs normal with Fludrocortisone ECHO showed normal LV function cardiology evaluated deemed patient has vasovagal continue above car and monitor (3) Atrial fibrillation: Qualifiers: Atrial fibrillation type: unspecified Qualified Code(s): I48.91 - Unspecified atrial fibrillation Code(s): I48.91 - Unspecified atrial fibrillation Status: Chronic Assessment and Plan: - home medications: continue metoprolol and Xarelto - telemetry monitoring (4) Hypertension: Qualifiers: Hypertension type: primary hypertension Qualified Code(s): I10 - Essential (primary) hypertension Code(s): I10 - Essential (primary) hypertension Status: Chronic Assessment and Plan: - chronic, currently 140/80 - home medications: continue Amlodipine - monitor (5) Hyponatremia: Code(s): E87.1 - Hypo-osmolality and hyponatremia Status: Acute Assessment and Plan: Na 126 today started on Sodium tablets monitor Plan Diet: Heart healthy DVT Prophylaxis: On Xarelto Code Status: Full code Subjective Date/time seen: 10/31/23 16:42 Interval history: Orthostatic vital signs normal this morning Review of Systems Review of Systems: All systems reviewed & are unremarkable except as noted in HPI and below Exam Narrative: General: alert and comfortable Eyes: EOMI, PERRLA ENNT External ears normal, Neck is supple, no masses, Respiratory systems: Clear to auscultation Cardiovascular S1, S2, normal rhythm, no murmur, rub, or gallop; no thrill or palpable murmurs on palpation. Gastrointestinal: soft, non-tender, and non-distended abdomen with no masses; BS present Skin: no rash, lesions, ulcerations, subcutaneous nodules or induration Musculoskeletal: eccymosis of the left shoulder Neurologic: Alert and oriented x3, non focal Mental Status Exam: normal affect Const: General: comfortable and no acute distress Other: , female, nontoxic appearance HENMT: Face/Nose/Sinus: Normal nares present Mouth: Yes moist mucous membranes Eyes: General: appearance normal, both eyes and all related structures Sclera: sclerae normal Pupils: Equal, round and reactive pupils present EOM: EOMs intact bilaterally Resp: Effort & Inspection: normal respiratory effort Auscultation: clear to auscultation bilaterally Cardio: Rate: regular rate Rhythm: abnormal rhythm Other: no murmur or rub. GI: Other: Abdomen soft, nondistended, nontender. Skin: General skin exam: normal color and no rashes or lesions noted
[2023-10-31] MEDS: PROCHLORPERAZINE EDISYLATE 10 MG/2 ML VIAL IV PUSH (16:50)
[2023-10-31] MEDS: SODIUM CHLORIDE 1 GM TABLET PO (16:50)
--- NOTE | 2023-10-31 20:40 | ADMGEN ---
This patient, Kristie Coates, was transferred to Medical Room 245-01 from .
--- NOTE | 2023-10-31 20:51 | PC.NURSE ---
This patient, Kristie Coates, was transferred to [ 245] on 10/31/23 at 2042. Personal belongings sent with patient. Report given to [ May RN]. Appropriate documentation sent with patient.
[2023-11-01] VITALS (11 sets, daily range): BP systolic 117–152; BP diastolic 59–68; PULSE 78–117; RESP 14–18; TEMP 36.3–36.8; O2SAT 96–98
[2023-11-01 06:35] LABS: Basophils Percent Auto 0.2 % (0.2-1.2); Eosinophils Percent Auto 0.1 % (0-4.4); Hematocrit 33.4 % (37.0-47.0); Hemoglobin 10.9 g/dL (12.0-15.0); Immature Granulocyte Absolute 0.02 K/mm3 (0.00-0.031); Immature Granulocyte Percent A 0.2 % (0-0.5); Immature Platelet Fraction Pct 12.5 % (0.9-11.2); Lymphocytes Absolute Auto 1.25 K/mm3 (0.9-3.2); Mean Corpuscular HGB Conc 32.6 g/dl (32-36); Mean Corpuscular Hemoglobin 30.4 pg (26-34); Monocytes Absolute Auto 1.3 K/mm3 (0.1-0.6); Neutrophils Absolute Auto 5.7 K/mm3 (1.3-6.7); Neutrophils Percent Auto 68.5 % (45.5-73.1); Platelet Count Result 152 k/mm3 (150-375); Red Blood Count 3.59 M/mm3 (4.2-5.4); Red Cell Distribution Width 14.4 % (11.5-14.5); White Blood Count 8.3 K/mm3 (4.5-10.0)
[2023-11-01 06:46] LABS: Alanine Aminotransferase 22 U/L (6-35); Albumin Level 3.6 g/dL (3.5-5.1); Alkaline Phosphatase 58 U/L (38-126); Anion Gap 5 mmol/L (4-12); Aspartate Amino Transferase 35 U/L (14-36); Bilirubin,Total 0.9 mg/dL (0.2-1.3); Blood Urea Nitrogen 16 mg/dL (7-17); Calcium 8.4 mg/dL (8.4-10.2); Carbon Dioxide 30 mmol/L (22-30); Chloride 97 mmol/L (98-107); Estimated CRCL calculation 50 ml/min; Estimated Glomerular Filt Rate > 60; Glucose 100 mg/dL (65-110); Magnesium 2.4 mg/dL (1.6-2.3); Potassium 3.5 mmol/L (3.4-5.0); Sodium 132 mmol/L (137-145)
[2023-11-01] MEDS: METOPROLOL SUCCINATE EXT REL 25 MG TABCR PO (09:02)
[2023-11-01] MEDS: SODIUM CHLORIDE 1 GM TABLET PO ×2 (09:03→17:13)
[2023-11-01] MEDS: FLUDROCORTISONE ACETATE 0.1 MG TABLET PO (09:03)
[2023-11-01] MEDS: amLODIPine BESYLATE 5 MG TABLET PO (09:03)
[2023-11-01] MEDS: RIVAROXABAN 20 MG TABLET PO (09:03)
--- NOTE | 2023-11-01 10:14 | PM.IMPN ---
Progress Note: A&P Assessment and Plan (1) Fracture of humerus, proximal, left, closed: Qualifiers: Encounter type: initial encounter Fracture morphology: other fracture Fracture alignment: nondisplaced Qualified Code(s): S42.295A - Other nondisplaced fracture of upper end of left humerus, initial encounter for closed fracture Code(s): S42.202A - Unspecified fracture of upper end of left humerus, initial encounter for closed fracture Status: Acute Assessment and Plan: - trauma workup: Clavicle XR, head CT, and chest/abdomen/pelvis CTA negative for acute findings. Shoulder XR showed a comminuted 2 part fracture of the proximal left humerus. - fall precautions - shoulder immobilizer applied - analgesics p.r.n. Outpatient follow up with ortho (2) Near syncope: Code(s): R55 - Syncope and collapse Status: Acute Assessment and Plan: - EKG, initial: AFib with slow ventricular response, rate 49, borderline R-wave progression anterior leads, nonspecific ST-T-wave abnormality anterior/inferior leads, baseline artifact. No previous EKG available for comparison - CTA chest/abdomen/pelvis: 1. Aortic atherosclerosis. No aneurysm or dissection. 2. Comminuted fracture of proximal left humerus. - Troponin: <0.012, 3 and 6 hour ordered - TSH wnl - orthostatic viral signs normal with Fludrocortisone ECHO showed normal LV function cardiology evaluated deemed patient has vasovagal continue above car and monitor (3) Atrial fibrillation: Qualifiers: Atrial fibrillation type: unspecified Qualified Code(s): I48.91 - Unspecified atrial fibrillation Code(s): I48.91 - Unspecified atrial fibrillation Status: Chronic Assessment and Plan: - home medications: continue metoprolol and Xarelto - telemetry monitoring (4) Hypertension: Qualifiers: Hypertension type: primary hypertension Qualified Code(s): I10 - Essential (primary) hypertension Code(s): I10 - Essential (primary) hypertension Status: Chronic Assessment and Plan: - chronic, currently 140/80 - home medications: continue Amlodipine - monitor (5) Hyponatremia: Code(s): E87.1 - Hypo-osmolality and hyponatremia Status: Acute Assessment and Plan: Na 132 today started on Sodium tablets, will discontinue on discharge since patient is on Fludrocortisone monitor (6) Orthostatic hypotension: Code(s): I95.1 - Orthostatic hypotension Status: Acute Assessment and Plan: orthostatic vital signs resolved on FLudrocortisone will discharge on 10 days worth and have PCP follow up and adjust accordingly Plan Diet: Heart healthy DVT Prophylaxis: On Xarelto Code Status: Full code Patient awaiting SNF placement Subjective Date/time seen: 11/01/23 10:14 Interval history: Orthostatic vital signs normal this morning, on Fludrocortisone Patient awaiting SNF placement WIll f/u with Ortho for humeral fracture outpatient Review of Systems Review of Systems: All systems reviewed & are unremarkable except as noted in HPI and below Exam Narrative: General: alert and comfortable Eyes: EOMI, PERRLA ENNT External ears normal, Neck is supple, no masses, Respiratory systems: Clear to auscultation Cardiovascular S1, S2, normal rhythm, no murmur, rub, or gallop; no thrill or palpable murmurs on palpation. Gastrointestinal: soft, non-tender, and non-distended abdomen with no masses; BS present Skin: no rash, lesions, ulcerations, subcutaneous nodules or induration Musculoskeletal: eccymosis of the left shoulder Neurologic: Alert and oriented x3, non focal Mental Status Exam: normal affect Const: General: comfortable and no acute distress Other: , female, nontoxic appearance HENMT: Face/Nose/Sinus: Normal nares present Mouth: Yes moist mucous membranes Eyes: General: appearance nor
--- NOTE | 2023-11-01 12:43 | PM.PNORT ---
Progress Note: A&P Assessment and Plan (1) Fracture of humerus, proximal, left, closed: Qualifiers: Encounter type: initial encounter Fracture morphology: other fracture Fracture alignment: nondisplaced Qualified Code(s): S42.295A - Other nondisplaced fracture of upper end of left humerus, initial encounter for closed fracture Code(s): S42.202A - Unspecified fracture of upper end of left humerus, initial encounter for closed fracture Status: Acute Assessment and Plan: Radiographs in the ED reveal a comminuted two-part fracture the proximal left humerus. The fracture type and injury as well as radiographs discussed with the patient and family. Operative and nonoperative treatment options reviewed. Recommended nonoperative treatment at this time. Risk of nonunion, malunion or late displacement discussed. Stiffness, pain and possible dysfunction of the joint discussed. Fracture precautions and activity restrictions reviewed. Discussed fracture with the brother at the bedside today as well. PT/OT. NWB LUE. Pain control. Ice. Shoulder immobilizer. Gentle pendulum exercises, okay to remove shoulder immobilizer for hygiene purposes. Monitor skin. Nystatin powder in the underarm space if needed. Dispo: SNF vs. [facility] Repeat radiographs in the outpatient orthopedic clinic in 5-6 weeks. (2) Altered mental status: Code(s): R41.82 - Altered mental status, unspecified Status: Acute Assessment and Plan: Improved. Brother at bedside today. Correct information given to nursing staff and requested it be updated in the chart. Care coordination may need to consider discussing POA with the family for future. (3) Near syncope: Code(s): R55 - Syncope and collapse Status: Acute Assessment and Plan: Cleared by cardiology. Likely vasovagal due to pain in the ED when they transitioned her out of bed to put sling in place. Plan Reviewed history, exam, radiographs and current labs with attending MD and covering surgeon, Dr. Pond, who agrees with current plan as indicated above. No further recommendations from Dr. Pond at this time. Subjective Subjective Date/Time Seen: 11/01/23 12:43 Interval history: Patient doing well. Improvement in mentation noted in comparison to previous exam. Complains of the left shoulder pain. Brother at bedside. Concerned about ability to get around upon d/c from the hospital. Review of Systems Review of Systems: All systems reviewed & are unremarkable except as noted in HPI and below Exam Const: General: comfortable, no acute distress, alert, confusion and average body habitus Nutritional Appearance: average body habitus Orientation/consciousness: oriented to person, oriented to place and confusion Limitations: altered mental status HENMT: Mouth: Yes moist mucous membranes Eyes: General: appearance normal, both eyes and all related structures Neck: Neck: supple and no JVD Resp: Effort & Inspection: normal respiratory effort GI: Inspection: non-distended Neuro: General: oriented to person, oriented to place, gait normal and confusion Speech: normal speech Extrem: Left upper extremity: shoulder/upper arm abnormal to inspection, tenderness of the clavicle and of the proximal humerus, swelling of the clavicle and of the proximal humerus, abnormal ROM held in an abnormal fashion in ADduction, ecchymosis and deformity (joint swelling ) Psych: Mental Status: mental status grossly normal Affect: normal affect Objective Data Vital Signs Vital Signs: Vital Signs - 24 hr 10/31/23 14:00 10/31/23 16:00 10/31/23 16:00 Temperature Pulse Rate 88 91 Respiratory Rate Blood Pressure Pulse Oximetry Oxygen Delivery Room Air 10/31/23 16:00 10/31/23 17:30 10/31/23 17:39 Temperature 36.2 C L Pulse Rate 93 Respiratory Rate 18 Blood Pressure 129/70 149/78 H 151/83 H Pulse Oximetry 98 Oxygen Delivery
[2023-11-02] VITALS: PULSE 90
[2023-11-02] MEDS: HYDROcodone/acetaminophen (*CRX) 5-325 MG TABLET 1 TAB PO (00:17)
[2023-11-02 04:00] VITALS: PULSE 80
[2023-11-02 04:56] VITALS: BP 131/61; PULSE 81; RESP 16; TEMP 36.8; O2SAT 96
[2023-11-02 08:30] VITALS: PULSE 95
[2023-11-02] MEDS: RIVAROXABAN 20 MG TABLET PO (08:30)
[2023-11-02] MEDS: FLUDROCORTISONE ACETATE 0.1 MG TABLET PO (08:30)
[2023-11-02] MEDS: METOPROLOL SUCCINATE EXT REL 25 MG TABCR PO (08:30)
[2023-11-02] MEDS: amLODIPine BESYLATE 5 MG TABLET PO (08:30)
[2023-11-02] MEDS: SODIUM CHLORIDE 1 GM TABLET PO (08:30)
--- NOTE | 2023-11-02 09:27 | PM.PNORT ---
Progress Note: A&P Assessment and Plan (1) Fracture of humerus, proximal, left, closed: Qualifiers: Encounter type: initial encounter Fracture morphology: other fracture Fracture alignment: nondisplaced Qualified Code(s): S42.295A - Other nondisplaced fracture of upper end of left humerus, initial encounter for closed fracture Code(s): S42.202A - Unspecified fracture of upper end of left humerus, initial encounter for closed fracture Status: Acute Assessment and Plan: Radiographs in the ED reveal a comminuted two-part fracture the proximal left humerus. The fracture type and injury as well as radiographs discussed with the patient and family. Operative and nonoperative treatment options reviewed. Recommended nonoperative treatment at this time. Risk of nonunion, malunion or late displacement discussed. Stiffness, pain and possible dysfunction of the joint discussed. Fracture precautions and activity restrictions reviewed. Discussed fracture with the brother at the bedside today as well. PT/OT. NWB LUE. Pain control. Ice. Shoulder immobilizer. Gentle pendulum exercises, okay to remove shoulder immobilizer for hygiene purposes. Monitor skin. Nystatin powder in the underarm space if needed. Dispo: SNF vs. [facility] Repeat radiographs in the outpatient orthopedic clinic in 5-6 weeks. (2) Altered mental status: Code(s): R41.82 - Altered mental status, unspecified Status: Acute Assessment and Plan: Improved. (3) Near syncope: Code(s): R55 - Syncope and collapse Status: Acute Assessment and Plan: Cleared by cardiology. Likely vasovagal due to pain in the ED when they transitioned her out of bed to put sling in place. Plan Reviewed history, exam, radiographs and current labs with attending MD and covering surgeon, Dr. Pond, who agrees with current plan as indicated above. No further recommendations from Dr. Pond at this time. Subjective Subjective Date/Time Seen: 11/02/23 09:27 Interval history: Patient doing well. Working with PT, ambulating in room with walker. Complains of the left shoulder pain, improving. Awaiting SNF placement. Review of Systems Review of Systems: All systems reviewed & are unremarkable except as noted in HPI and below Exam Const: General: comfortable, no acute distress, alert, confusion and average body habitus Nutritional Appearance: average body habitus Orientation/consciousness: oriented to person, oriented to place and confusion Limitations: altered mental status HENMT: Mouth: Yes moist mucous membranes Eyes: General: appearance normal, both eyes and all related structures Neck: Neck: supple and no JVD Resp: Effort & Inspection: normal respiratory effort GI: Inspection: non-distended Neuro: General: oriented to person, oriented to place, gait normal and confusion Speech: normal speech Extrem: Left upper extremity: shoulder/upper arm abnormal to inspection, tenderness of the clavicle and of the proximal humerus, swelling of the clavicle and of the proximal humerus, abnormal ROM held in an abnormal fashion in ADduction, ecchymosis and deformity (joint swelling ), wrist normal to inspection; inspection normal and hand normal to inspection, tendon exam normal and vascular exam radial pulse present; no tenderness Psych: Mental Status: mental status grossly normal Affect: normal affect Objective Data Vital Signs Vital Signs: Vital Signs - 24 hr 11/01/23 12:00 11/01/23 14:55 11/01/23 16:00 Temperature 36.8 C Pulse Rate 96 80 80 Respiratory Rate 14 Blood Pressure 125/59 L Pulse Oximetry 98 11/01/23 20:17 11/01/23 20:00 11/02/23 00:00 Temperature 36.7 C Pulse Rate 92 79 90 Respiratory Rate 18 Blood Pressure 117/61 Pulse Oximetry 96 11/02/23 04:00 11/02/23 04:56 11/02/23 08:30 Temperature 36.8 C Pulse Rate 80 81 95 Respiratory Rate 16 Blood Pressure 131/61 Pulse Oxim
[2023-11-02] MEDS: ACETAMINOPHEN 325 MG TABLET 650 MG PO (09:48)
--- NOTE | 2023-11-02 13:18 | PM.DS ---
DS: Admitting Diagnosis Discharge Date 11/02/23 Admitting Diagnosis Fall DS: Discharge Diagnosis Discharge Diagnosis (1) Near syncope: Code(s): R55 - Syncope and collapse Status: Acute (2) Fracture of humerus, proximal, left, closed: Qualifiers: Encounter type: initial encounter Fracture morphology: other fracture Fracture alignment: nondisplaced Qualified Code(s): S42.295A - Other nondisplaced fracture of upper end of left humerus, initial encounter for closed fracture Code(s): S42.202A - Unspecified fracture of upper end of left humerus, initial encounter for closed fracture Status: Acute (3) Closed fracture of shoulder: Code(s): S42.90XA - Fracture of unspecified shoulder girdle, part unspecified, initial encounter for closed fracture Status: Acute (4) Hypertension: Qualifiers: Hypertension type: primary hypertension Qualified Code(s): I10 - Essential (primary) hypertension Code(s): I10 - Essential (primary) hypertension Status: Chronic (5) Atrial fibrillation: Qualifiers: Atrial fibrillation type: unspecified Qualified Code(s): I48.91 - Unspecified atrial fibrillation Code(s): I48.91 - Unspecified atrial fibrillation Status: Chronic (6) Hyponatremia: Code(s): E87.1 - Hypo-osmolality and hyponatremia Status: Acute DS: Summary Hospital Course Hospital Course: 88 y/o female fell while and landed on her left side x-ray of the arm showed a comminuted two-part fracture the proximal left humerus. patient was seen by orthopedic service and discuss options with family surgery or conservative management, it was decided not to do surgery and left shoulder was immobilized, and pain was controle, provided PT. patient has a bed available at SNF and patient is clinically stable, will discharge patient today. Time Spent with Patient Time attestation: Total time spent providing and/or coordinating discharge services: Exam Narrative: General: alert and comfortable Eyes:clear ENNT External ears normal, Neck is supple, no masses, Respiratory systems: Clear to auscultation Cardiovascular S1, S2, normal rhythm, no murmur, rub, or gallop; no thrill or palpable murmurs on palpation. Gastrointestinal: soft, non-tender, and non-distended abdomen with no masses; BS present Skin: no rash, lesions, ulcerations, subcutaneous nodules or induration Musculoskeletal: ecchymosis of the left shoulder with immobilizer Neurologic: Alert and oriented x3, non focal Mental Status Exam: normal affect Discharge Plan Discharge Attending physician on discharge: Denice Edmonds Consulting providers: Shabana Salazar; Casey Pond; Shayna Jordan; Henry Colvin; Acna Sanchez; Landen Malone; Bon Saleem; Kumar Campos V.; Rolly Montaño Discharging Clinician: Denice Edmonds Anticipated Discharge Date/Time: 11/01/23 09:45 Patient Disposition: SNF Activity: may shower, no driving and follow weight bearing status Diet: as tolerated Discharge Instructions: Orthopedic Recommendations Dr. Casey Pond [phone] Keep Shoulder Immobilizer in place. May remove for hygiene purposes keeping arm at side. Okay to use a bending position to the left side with a pendulum motion to perform under arm hygiene. Would recommend Nystatin powder for moisture/irritation. Follow up appt scheduled below. Contact our office with concerns regarding your shoulder. patient to follow discharge instruction from her orthopedic surgeon and follow up as scheduled, patient to follow up with her oncologists and primary care provider as soon as possible. Patient Instructions: Syncope (DC) Stand Alone Forms: General Discharge Information Follow-up/Referrals: Casey Pond MD [Physician] - 12/06/23 10:45 am Aquiles Castillo MD [Physician] - (F/u with PCP in 3-5 days ) Discharge Medications: New hydroco
== END 2023-11-02 14:25 | DRG 563 ==
LOC: ANHED 10:17 → ANHIMU 12:35 → ANH2MED 10-31 20:43
PROVIDERS: Student in an Organized Health Care Education/Training Program; Admitting Provider Internal Medicine; Emergency Provider Registered Nurse; Visit Provider Family Medicine
DX: S42.222A 2-part displaced fracture of surgical neck of left humerus, initial encounter for closed fracture (principal); I48.20 Chronic atrial fibrillation, unspecified; S42.252A Displaced fracture of greater tuberosity of left humerus, initial encounter for closed fracture; W01.198A Fall on same level from slipping, tripping and stumbling with subsequent striking against other object, initial encounter; I95.1 Orthostatic hypotension; I10 Essential (primary) hypertension
CPT/HCPCS: 23605; 36415; 70450; 71275; 73000; 73030; 74174; 80048; 80053; 82948; 83735; 83880; 84295; 84443; 84484; 85025; 85055; 93005; 93306; 96361; 96374; 96375; 97110; 97161; 97166; 97530; 97535; 99285; A9270; G0378; J0780; J2270; J2405; J7030; J7040; Q9967